=== PATIENT | male | born 1995 | race Caucasian/White ===

== ENCOUNTER 2024-05-01 22:01 | Emergency (ER) | payer MEDICAID ==
[~2024-05-01] VITALS: Ht 185.4 cm; Wt 84.0 kg
[2024-05-01 22:07] VITALS: BP 97/52; PULSE 67; RESP 16; TEMP 98.5; O2SAT 97
[2024-05-02] MEDS ORDERED: ONDA4TAB50 MT (00:12)
== END 2024-05-02 04:30 | disposition home or self-care (01) ==
LOC: ER 22:01
DX: F10.129 Alcohol abuse with intoxication, unspecified (principal); Y90.9 Presence of alcohol in blood, level not specified
CPT/HCPCS: 82962; 99281; 99283